=== PATIENT | female | born 1960 | race Hispanic/Latino ===

== ENCOUNTER 2016-09-17 07:41 | Day surgery (SDC) | payer OTHER ==
[2016-09-12 10:06] VITALS: BMI 29.5
[2016-09-17] MEDS ORDERED: Iohexol 240 (50 ml) ONE (08:23)
[2016-09-17] MEDS ORDERED: cefTRIAXone (Rocephin) 1 gm Inj ONE (08:23)
[2016-09-17] MEDS ORDERED: Propofol 10 mg/ml Inj (20 ML) ONE (10:07)
[2016-09-17] MEDS ORDERED: Lidocaine 1% Inj (20ml) ONE (10:07)
[2016-09-17] MEDS ORDERED: HYDROmorphone 0.5 mg/0.5 ml ISec IVP PRN (11:37)
[2016-09-17] MEDS ORDERED: Lactated Ringer's 1,000 ML IV SCH (11:45)
[2016-09-17 11:48] VITALS: TEMP 97.6; O2SAT 99
[2016-09-17] MEDS ORDERED: HYDROmorphone 0.5 mg/0.5 ml ISec ONE (11:57)
[2016-09-17] MEDS ORDERED: HYDROmorphone 0.5 mg/0.5 ml ISec IVP ONE (11:59)
[2016-09-17 12:50] VITALS: RESP 20
--- NOTE | 2016-09-17 13:33 | OP ---
PROCEDURE DATE: 09/17/2016 PREOPERATIVE DIAGNOSES: Left ureterocele, left ureteral calculus. POSTOPERATIVE DIAGNOSES: Left ureterocele, left ureteral calculus. PROCEDURE: Cystoscopy, left retrograde pyelogram, incision of a left ureterocele, laser lithotripsy of left ureteral calculus, extraction of left ureteral calculi. ATTENDING SURGEON: Trevor Walters MD ANESTHESIA: General. SPECIMENS: Bladder and ureteral calculi were sent to pathology. DRAINS: A 20-Burundian 2-way Valverde catheter. COMPLICATIONS: There were none. OPERATIVE FINDINGS: After informed consent was obtained, the patient was taken to the operating room and placed on the operating table. Anesthesia was administered. The patient was placed in the dors al lithotomy position and prepped and draped in usual sterile fashion. A 21-Burundian cystoscope was th en passed into the patient's bladder and a full survey inspection was performed. There were no stone s, tumors or foreign bodies of the bladder noted. The right ureteral orifice was normal in appearanc e. On the left side, there was a large, heaped-up ureterocele which was markedly inflamed. Just pro ximal to the ureterocele, a second ureteral orifice could be visualized. At this point, an open-ende d ureteral catheter was passed into the bladder and attempts were made to catheterize the proximal le ft ureteral orifice. Due to the position and it being adjacent to the ureterocele, I was unable to i nitially catheterize it. A Berenstein catheter was obtained and using the Berenstein catheter and a guidewire, I was able to catheterize the ureter. At this point, the guidewire was removed and contra st was instilled into the system. The ureter to the lower pole appeared within normal limits. There was no evidence of filling defect. The collecting system was normal with no hydronephrosis. At thi s point, multiple attempts were made to catheterize the ureterocele orifice; however, it appeared to be completely occluded. A wire could be put just inside, but the ureteral catheter could not be adva nced due to the stone, which was known to be located in the ureterocele. At this point, a Neff kn willi was obtained. Using the Neff knife, the ureterocele was then incised through the pinpoint ope linh, down into the ureterocele until a large yellow spiculated calculus was visualized. At this poi nt, I was able to visualize the ureter and multiple attempts were made to manually extract the stone, which were unsuccessful given the large size of the stone. At this point, a holmium laser fiber was obtained. A safety wire had been placed into the ureter for the lower pole, which remained in place . Using the holmium laser fiber, the stone was able to be fragmented in situ in the ureterocele. Af ter fragmenting the stone, the laser was removed. A stone grasper was placed and the fragments were able to be removed from the ureterocele and dragged into the bladder. There were 2 large fragments r emaining. At this point, the laser fiber was repassed and the large fragments were able to be fragme nted into small pieces in the bladder. After fragmentation was completed, the laser fiber was withdr awn. Most of the stone was able to be irrigated out of the bladder. The cystoscope was removed and the larger resectoscope sheath was passed and between irrigation and using the grasping forceps, all of the stone fragments were able to be removed, which were sent to pathology as specimen. The ureter ocele was inspected. There was good hemostasis from where the incision had been made. An open-ended ureteral catheter was then advanced into the now opened ureterocele and a retrograde pyelogram was p erformed. The remainder of the ureter to the upper pole appeared within normal limits. There were n o filling defects. There was no hydronephrosis of the upper pole ureter. On drainage films, the ure ters from both the upper and lower moieties drained promptly with no evidence of obstruction. At thi s point, a final inspection was made. There was no remaining stone in the bladder. There was good h emostasis from the incision on the ureterocele. At this point, the bladder was drained. A 20-Burundian 2-way Valverde catheter was passed to straight drainage. The patient tolerated the procedure well. Nuha salmeron was returned to the supine position and taken to the recovery room awake and in stable condition. Prior to finishing the procedure, the safety wire in the proximal ureter was removed under direct and fluoroscopic guidance. Trevor Walters MD cc: [id number] TT: 09/17/2016 13:33:12 en
[2016-09-17 15:36] VITALS: BP 119/67
[2016-09-17 15:54] VITALS: PULSE 74
--- NOTE | 2016-09-18 14:55 | RAD ---
PROCEDURE: Retrograde pyelogram HISTORY: Retrograde cystogram LT kidney COMPARISON: None TECHNIQUE: Standard protocol for this study/examination. FINDINGS: Total fluoroscopic time (continuous mode) utilized during the procedure: 30 seconds. IMPRESSION: Less than 1 hr fluoroscopic time utilized during performance of the procedure.
== END 2016-09-17 16:30 | disposition home or self-care (01) ==
LOC: SDS 07:41
PROVIDERS: ATTEND Urology
DX: N20.1 Calculus of ureter (principal); N28.89 Other specified disorders of kidney and ureter
CPT/HCPCS: 52300; 52353; 74420; 82355; C1769; C1887; J0690; J1170; J2405; J2704; J3010; J7120 ×2; Q9966

== ENCOUNTER 2016-09-19 05:01 | Emergency (ER) | payer OTHER ==
[2016-09-19 05:42] VITALS: BMI 29.2
[2016-09-19] MEDS ORDERED: Sodium Chloride 0.9% 1,000 ML IV STA (05:44)
--- NOTE | 2016-09-19 05:45 | ED PDOC ---
Arrival/HPI - General Time Seen by Provider: 09/19/16 05:40 Historian: Patient - History of Present Illness Narrative History of Present Illness (Text): 09/19/16 05:43 Monica Munroe is a 56 year old female, whose past medical history includes nephrolithiasis, who presents to the Emergency department complaining of hematuria. Patient reports she underwent a cystoscopy with left uretocele incision and left ureteral stone extraction on 09/17/2016. Patient states the procedure was completed without complications and she was discharged home but reports tonight she developed intermittent hematuria. Patient also reports some associated left flank pain radiating to her LLQ. Patient denies any fever, chills, chest pain, shortness of breath, nausea, vomiting, diarrhea, dysuria, urinary frequency, neck pain, headache, dizziness, or any other complaints. Urologist: Dr. Rangel Time/Duration: Other (yesterday) Symptom Onset: Gradual Symptom Course: Unchanged, Intermittent Activities at Onset: Light Context: Home Past Medical History - Provider Review Nursing Documentation Reviewed: Yes - Cardiac Hx Pacemaker: No - Neurological Hx Paralysis: No - Hematological/Oncological Hx Blood Transfusions: No - Musculoskeletal/Rheumatological Hx Musculoskeletal Disorders: No - Psychiatric Hx Emotional Abuse: No Hx Physical Abuse: No Hx Substance Use: No - Anesthesia Hx Anesthesia Reactions: No Hx Malignant Hyperthermia: No - Suicidal Assessment Feels Threatened In Home Enviroment: No Family/Social History - Physician Review Nursing Documentation Reviewed: Yes Family/Social History: No Known Family HX Hx Alcohol Use: No Hx Substance Use: No Allergies/Home Meds Allergies/Adverse Reactions: Allergies No Known Allergies Allergy (Verified 09/19/16 05:40) Home Medications: Home Meds Medication Instructions Recorded Confirmed Ciprofloxacin [Cipro] 500 mg PO BID 09/17/16 09/19/16 Review of Systems - Physician Review All systems were reviewed & negative as marked: Yes - Review of Systems Constitutional: Normal. absent: Fevers Eyes: Normal ENT: Normal Respiratory: Normal. absent: SOB, Cough Cardiovascular: Normal. absent: Chest Pain Gastrointestinal: Normal. absent: Abdominal Pain, Diarrhea, Nausea, Vomiting Genitourinary Female: Hematuria. absent: Dysuria, Frequency, Urine Output Changes Musculoskeletal: Back Pain (+left flank pain). absent: Neck Pain Skin: Normal. absent: Rash Neurological: Normal. absent: Headache, Dizziness Endocrine: Normal Hemo/Lymphatic: Normal Psychiatric: Normal Physical Exam Vital Signs Reviewed: Yes Vital Signs Temp Pulse Resp BP Pulse Ox 09/19/16 05:41 98.1 F 76 18 124/76 98 Temperature: Afebrile Blood Pressure: Normal Pulse: Regular Respiratory Rate: Normal Appearance: Positive for: Well-Appearing, Non-Toxic, Comfortable Pain Distress: None Mental Status: Positive for: Alert and Oriented X 3 - Systems Exam Head: Present: Atraumatic, Normocephalic Pupils: Present: PERRL Extroacular Muscles: Present: EOMI Conjunctiva: Present: Normal Mouth: Present: Moist Mucous Membranes Neck: Present: Normal Range of Motion Respiratory/Chest: Present: Clear to Auscultation, Good Air Exchange. No: Respiratory Distress, Accessory Muscle Use Cardiovascular: Present: Regular Rate and Rhythm, Normal S1, S2. No: Murmurs Abdomen: Present: Normal Bowel Sounds. No: Tenderness, Distention, Peritoneal Signs Back: Present: Normal Inspection. No: CVA Tenderness Upper Extremity: Present: Normal Inspection. No: Cyanosis, Edema Lower Extremity: Present: Normal Inspection. No: Edema Neurological: Present: GCS=15, CN II-XII Intact, Speech Normal Skin: Present: Warm, Dry, Normal Color. No: Rashes Psychiatric: Present: Alert, Oriented x 3, Normal Insight, Normal Concentration Medical Decision Making ED Course and Treatment: 09/19/16 05:43 Impression: 56 year old female complaining of hematuria and left flank pain radiating to LLQ. Plan: -- Labs -- Urinalysis -- IV fluids -- Reassess and disposition Progress Notes: - Lab Interpretations Lab Results: 09/19/16 06:36 Lab Results 09/19/16 06:36: Sodium 141, Potassium 4.3, Chloride 104, Carbon Dioxide 28, Anion Gap 13, BUN 8, Creatinine 0.6, Est GFR ( Amer) > 60, Est GFR (Non- Af Amer) > 60, Random Glucose 99, Calcium 9.1, Total Bilirubin 0.7, AST 39, ALT 39, Alkaline Phosphatase 68, Total Protein 7.6, Albumin 4.0, Globulin 3.6, Albumin/Globulin Ratio 1.1 I have reviewed the lab results: Yes - Medication Orders Current Medication Orders: Discontinued Medications Sodium Chloride (Sodium Chloride 0.9%) 1,000 mls @ 999 mls/hr IV .Q1H1M STA Stop: 09/19/16 06:44 Last Admin: 09/19/16 06:27 Dose: 999 MLS/HR eMAR Start Stop Document 09/19/16 06:27 (Rec: 09/19/16 06:27 MR [id number]) Intravenous Solution Start Date 09/19/16 Start Time 06:27 End Date 09/19/16 End time 07:27 Total Infusion Time 60 - Transfer of Care Patient signed out to Dr:: Antoni Pending Labs:: labs/reassess/final disposition - Scribe Statement The provider has reviewed the documentation as recorded by the Mihai Gage Provider Attestation: All medical record entries made by the Ushaibfaviola were at my direction and personally dictated by me. I have reviewed the chart and agree that the record accurately reflects my personal performance of the history, physical exam, medical decision making, and the department course for this patient. I have also personally directed, reviewed, and agree with the discharge instructions and disposition. Disposition/Present on Arrival - Present on Arrival Any Indicators Present on Arrival: No - Disposition Have Diagnosis and Disposition been Completed?: No Diagnosis: Hematuria, Flank pain Disposition Time: 07:00 Patient Problems: Current Active Problems Problem Status Diagnosed Flank pain Acute Hematuria Acute Condition: STABLE
[2016-09-19 06:52] LABS: ALB/GLOB RATIO 1.1 (1.1-1.8); ALKALINE PHOSPHATASE 68 U/L (38-133); ALT/SGPT 39 U/L (7-56); AST/SGOT 39 U/L (15-39); BILIRUBIN,TOTAL 0.7 mg/dL (0.2-1.3); BLOOD UREA NITROGEN 8 mg/dL (7-21); CALCIUM 9.1 mg/dL (8.4-10.5); CARBON DIOXIDE 28 mmol/L (21-33); CHLORIDE 104 mmol/L (95-110); GFR AFRICAN-AMERICAN > 60; GLUCOSE,RANDOM 99 mg/dL (70-110); POTASSIUM 4.3 mmol/L (3.6-5.0); SODIUM 141 mmol/L (132-148); TOTAL PROTEIN 7.6 g/dL (5.8-8.3)
[2016-09-19 07:09] LABS: HEMATOCRIT 36.6 % (36.0-48.0); MEAN CELL VOLUME 79.9 fL (80.0-105.0); MEAN CORPUSCULAR HEMOGLOBIN 26.6 pg (25.0-35.0); MEAN CORPUSCULAR HGB CONC 33.3 g/dl (31.0-37.0); RED CELL DISTRIBUTION WIDTH 13.5 % (11.5-14.5); URINE BILIRUBIN NEGATIVE (NEGATIVE); URINE BLOOD LARGE (NEGATIVE); URINE GLUCOSE (UA) NEGATIVE (NEGATIVE); URINE KETONE NEGATIVE (NEGATIVE); URINE LEUKOCYTE ESTERASE SMALL Leu/uL (NEGATIVE); URINE PROTEIN 100 mg/dL (<30 mg/dL); URINE UROBILINOGEN 0.2 E.U./dL (<1 E.U./dL); WHITE BLOOD COUNT 8.2 10^3/ul (4.5-11.0)
[2016-09-19 07:19] LABS: URINE APPEARANCE TURBID (CLEAR); URINE COLOR YELLOW (YELLOW)
--- NOTE | 2016-09-19 07:28 | ED PDOC ---
Physical Exam Vital Signs Reviewed: Yes Vital Signs Temp Pulse Resp BP Pulse Ox 09/19/16 07:34 81 16 121/68 100 09/19/16 05:41 98.1 F 76 18 124/76 98 Temperature: Afebrile Blood Pressure: Normal Pulse: Regular Respiratory Rate: Normal Appearance: Positive for: Well-Appearing, Non-Toxic, Comfortable Pain Distress: None Mental Status: Positive for: Alert and Oriented X 3 Medical Decision Making ED Course and Treatment: 09/19/16 07:27 Patient is a 56 year old female who presents to the ed complaining of hematuria associated with left flank pain radiating to LLQ s/p recent cystoscopy. Case endorsed to be by for pending labs and reevaluation. 09/19/16 07:46 Labs unremarkable. Urine shows gross hematuria. Currently states that symptoms have improved markedly. Will call to arrange follow up and discharge patient on pain medication and Zofran. 09/19/16 09:04 Dr. Walters agrees with management, instructed patient to f/u within 1 week. - Lab Interpretations Lab Results: 09/19/16 06:36 09/19/16 06:36 Lab Results 09/19/16 06:36: WBC 8.2 D, RBC 4.58, Hgb 12.2, Hct 36.6, MCV 79.9 L, MCH 26.6, MCHC 33.3, RDW 13.5, Plt Count 286, MPV 10.0, Sodium 141, Potassium 4.3, Chloride 104, Carbon Dioxide 28, Anion Gap 13, BUN 8, Creatinine 0.6, Est GFR ( Amer) > 60, Est GFR (Non-Af Amer) > 60, Random Glucose 99, Calcium 9.1, Total Bilirubin 0.7, AST 39, ALT 39, Alkaline Phosphatase 68, Total Protein 7.6 , Albumin 4.0, Globulin 3.6, Albumin/Globulin Ratio 1.1, Urine Color Yellow, Urine Appearance Turbid, Urine pH 6.0, Ur Specific Hudson 1.010, Urine Protein 100 H, Urine Glucose (UA) Negative, Urine Ketones Negative, Urine Blood Large H , Urine Nitrate Negative, Urine Bilirubin Negative, Urine Urobilinogen 0.2, Ur Leukocyte Esterase Small H, Urine RBC Tntc, Urine WBC 1 - 3, Ur Epithelial Cells 1 - 3, Urine Bacteria Trace - Medication Orders Current Medication Orders: Discontinued Medications Sodium Chloride (Sodium Chloride 0.9%) 1,000 mls @ 999 mls/hr IV .Q1H1M STA Stop: 09/19/16 06:44 Last Admin: 09/19/16 06:27 Dose: 999 MLS/HR eMAR Start Stop Document 09/19/16 06:27 MR (Rec: 09/19/16 06:27 MR [id number]) Intravenous Solution Start Date 09/19/16 Start Time 06:27 End Date 09/19/16 End time 07:27 Total Infusion Time 60 - Scribe Statement The provider has reviewed the documentation as recorded by the Mihai Caldwell Provider Attestation: All medical record entries made by the Ushaibe were at my direction and personally dictated by me. I have reviewed the chart and agree that the record accurately reflects my personal performance of the history, physical exam, medical decision making, and the department course for this patient. I have also personally directed, reviewed, and agree with the discharge instructions and disposition. Disposition/Present on Arrival - Present on Arrival Any Indicators Present on Arrival: No History of DVT/PE: No History of Uncontrolled Diabetes: No Urinary Catheter: No History of Decub. Ulcer: No History Surgical Site Infection Following: None - Disposition Have Diagnosis and Disposition been Completed?: Yes Diagnosis: Hematuria, Flank pain Disposition Time: 09:05 Patient Plan: Discharge Patient Problems: Current Active Problems Problem Status Diagnosed Flank pain Acute Hematuria Acute Condition: STABLE Prescriptions: oxyCODONE/Acetaminophen [Percocet 5/325 mg Tab] 1 tab PO Q6 #10 tab Ondansetron ODT [Zofran ODT] 4 mg PO Q8 #12 odt Referrals: Trevor Walters MD [Staff Provider] - Follow up with primary Forms: WORK NOTE
[2016-09-19 07:33] LABS: URINE BACTERIA TRACE (NEG); URINE RBC TNTC /hpf (0-2)
[2016-09-19 09:14] VITALS: BP 115/61; PULSE 77; RESP 18; TEMP 98.3; O2SAT 99
== END 2016-09-19 09:16 | disposition home or self-care (01) ==
LOC: ED 05:01
DX: R31.9 Hematuria, unspecified (principal); R10.9 Unspecified abdominal pain
CPT/HCPCS: 80053; 81001; 85027; 87086; 96360; 99283; J7040